=== PATIENT | male | born 1980 | race Caucasian/White ===

== ENCOUNTER 2017-03-09 20:37 | Emergency (ER) | payer BC ==
--- NOTE | 2017-03-09 20:57 | Emergency Department Record ---
History of Present Illness - General Chief complaint: Pain Stated complaint: KNEE PAIN Time Seen by Provider: 03/09/17 20:52 Source: Patient Mode of Arrival: Ambulatory Limitations: No limitations - History of Present Illness Initial comments: 36 yo male presents with medial knee pain on the left. He is unsure of any injury. No history of knee surgery. No redness or swelling.. He is on his feet all day. No other joint pains. MD Complaint: Extremity pain, Joint pain - Related Data Previous Rx's Medication Instructions Recorded Naproxen [Naprosyn] 500 mg PO Q12H #20 tab. 03/09/17 Allergies Allergy/AdvReac Type Severity Reaction Status Date / Time diptheria immunization Allergy ANAPHYLAXIS Uncoded 08/18/16 03:49 Review of Systems Constitutional: Denies: Chills, Fever, Malaise, Weakness Eyes: Denies: Eye discharge, Eye pain ENT: Denies: Congestion, Throat pain Respiratory: Denies: Cough, Dyspnea, Hemoptysis, Stridor, Wheezes Cardiovascular: Denies: Chest pain, Palpitations, Syncope Endocrine: Denies: Fatigue Gastrointestinal: Denies: Abdominal pain, Diarrhea, Vomiting Genitourinary: Denies: Dysuria, Frequency, Hematuria Musculoskeletal: Reports: Arthralgia, Myalgia. Denies: Back pain, Joint swelling, Neck pain Skin: Denies: Bruising, Change in color, Rash Neurological: Denies: Confusion, Headache Psychiatric: Denies: Anxiety Hematological/Lymphatic: Denies: Blood Clots, Easy bleeding, Easy bruising, Swollen glands Past Medical History - SOCIAL HISTORY Smoking Status: Never smoker Drug Use: None - RESPIRATORY Hx Respiratory Disorders: No - CARDIOVASCULAR Hx Cardio Disorders: No - NEURO Hx Neuro Disorders: No - GI Hx GI Disorders: No - Hx Genitourinary Disorders: No - ENDOCRINE Hx Endocrine Disorders: No - MUSCULOSKELETAL Hx Musculoskeletal Disorders: No - PSYCH Hx Psych Problems: No - HEMATOLOGY/ONCOLOGY Hx Hematology/Oncology Disorders: No Physical Exam - General General Appearance: Alert, Oriented x3, Cooperative, No acute distress Limitations: No limitations - Head Head exam: Atraumatic, Normal inspection - Eye Eye exam: Normal appearance, PERRL. negative: Conjunctival injection, Periorbital swelling - ENT ENT exam: Normal exam Ear exam: Normal external inspection Nasal Exam: Normal inspection Mouth exam: Normal external inspection Teeth exam: Normal inspection Throat exam: Normal inspection - Neck Neck exam: Normal inspection - Respiratory Respiratory exam: Normal lung sounds bilaterally. negative: Respiratory distress - Cardiovascular Cardiovascular Exam: Regular rate, Normal rhythm, Normal heart sounds - Rectal Rectal exam: Deferred - exam: Deferred - Extremities Extremities exam: Normal inspection, Full ROM, Normal capillary refill, Tenderness (medial joint line), Other (full ROM). negative: Calf tenderness, Joint swelling, Pedal edema - Back Back exam: Reports: Normal inspection, Full ROM. Denies: Muscle spasm, Rash noted, Tenderness - Neurological Neurological exam: Alert, Normal gait, Oriented X3 - Psychiatric Psychiatric exam: Normal affect, Normal mood. negative: Agitated, Anxious - Skin Skin exam: Dry, Intact, Normal color, Warm Course Vital Signs 03/09/17 20:43 Temperature 98.4 F Pulse Rate [ 108 H Pulse Ox Probe] Respiratory 20 Rate Blood Pressure 126/97 [Left Arm] Pulse Ox 96 - Reevaluation(s) Reevaluation #1: The XR was read as mild degenerative changes. No other acute process 03/09/17 21:21 Disposition Disposition: Discharge Clinical Impression: Osteoarthritis of left knee Disposition: Home, Self-Care Condition: (1) Good Instructions: Osteoarthritis (ED), Knee Sprain (ED) Additional Instructions: Ice every night if sore Follow up with Dr Reich if the pain continues Prescriptions: Naproxen [Naprosyn] 500 mg PO Q12H #20 tab. Forms: Patient Portal Access Time of Disposition: 21:25
== END 2017-03-09 21:36 | disposition home or self-care (01) ==
LOC: ER 20:37
DX: M17.12 Unilateral primary osteoarthritis, left knee (principal)
CPT/HCPCS: 99283

== ENCOUNTER 2017-03-18 18:44 | Emergency (ER) | payer SELFPAY ==
--- NOTE | 2017-03-18 19:01 | Emergency Department Record ---
History of Present Illness - General Chief complaint: Lower Extremity Pain Stated complaint: LEFT KNEE PAIN Time Seen by Provider: 03/18/17 18:55 Source: Patient Mode of Arrival: Ambulatory Limitations: No limitations - History of Present Illness Initial comments: 36 yo male presents with continued medial left knee pain. He is on his feet all day at work and the pain is not going away. No fever or redness. No swelling. He is using a knee brace for support. No history of surgery in that knee. MD Complaint: Joint pain Onset/Timin -: Week(s) Location: Left, Knee History of Same: Yes -: Yes Arthralgia Radiation: None Severity scale (1-10): 8 Quality: Aching Consistency: Constant Improves with: Nothing Worsens with: Nothing Associated Symptoms: Denies other symptoms - Related Data Previous Rx's Medication Instructions Recorded Naproxen [Naprosyn] 500 mg PO Q12H #20 tab. 03/09/17 Methylprednisolone [Medrol Dose 0 mg PO UD #1 tab.ds.pk 03/18/17 Pack] Allergies Allergy/AdvReac Type Severity Reaction Status Date / Time diptheria immunization Allergy ANAPHYLAXIS Uncoded 03/18/17 18:53 Travel Screening - Travel/Exposure Within Last 30 Days Have you traveled within the last 30 days?: No Review of Systems Constitutional: Denies: Chills, Fever, Weakness Eyes: Denies: Eye discharge ENT: Denies: Congestion, Throat pain Respiratory: Denies: Cough Cardiovascular: Denies: Chest pain, Palpitations, Syncope Endocrine: Denies: Fatigue Gastrointestinal: Denies: Abdominal pain, Diarrhea, Nausea, Vomiting Genitourinary: Denies: Dysuria, Frequency, Hematuria Musculoskeletal: Reports: Arthralgia, Myalgia. Denies: Back pain, Joint swelling, Neck pain Skin: Denies: Bruising, Change in color, Rash Neurological: Denies: Headache, Numbness, Weakness Psychiatric: Denies: Anxiety Hematological/Lymphatic: Denies: Blood Clots, Easy bleeding, Easy bruising, Swollen glands Past Medical History - SOCIAL HISTORY Smoking Status: Never smoker Alcohol Use: None Drug Use: None - RESPIRATORY Hx Respiratory Disorders: No - CARDIOVASCULAR Hx Cardio Disorders: No - NEURO Hx Neuro Disorders: No - GI Hx GI Disorders: No - Hx Genitourinary Disorders: No - ENDOCRINE Hx Endocrine Disorders: No - MUSCULOSKELETAL Hx Musculoskeletal Disorders: No - PSYCH Hx Psych Problems: No - HEMATOLOGY/ONCOLOGY Hx Hematology/Oncology Disorders: No Family Medical History Any Significant Family History?: No Physical Exam - General General Appearance: Alert, Oriented x3, Cooperative Limitations: No limitations - Head Head exam: Atraumatic, Normocephalic, Normal inspection - Eye Eye exam: Normal appearance - ENT ENT exam: Normal exam Ear exam: Normal external inspection Nasal Exam: Normal inspection Mouth exam: Normal external inspection - Neck Neck exam: Normal inspection. negative: Tenderness - Respiratory Respiratory exam: Normal lung sounds bilaterally. negative: Respiratory distress - Cardiovascular Cardiovascular Exam: Regular rate, Normal rhythm, Normal heart sounds - Rectal Rectal exam: Deferred - exam: Deferred - Extremities Extremities exam: Normal inspection, Full ROM, Normal capillary refill, Tenderness, Other (calf is soft, no sign of DVT on examination). negative: Calf tenderness, Joint swelling, Pedal edema Image of Full Body: 1 - medial knee tenderness on palpation, no swelling, no effusion, no other swelling - Back Back exam: Reports: Normal inspection, Full ROM. Denies: Muscle spasm, Rash noted, Tenderness - Neurological Neurological exam: Alert, Normal gait, Oriented X3, Reflexes normal - Psychiatric Psychiatric exam: Normal affect, Normal mood - Skin Skin exam: Dry, Intact, Normal color, Warm Course Vital Signs 03/18/17 18:49 Temperature 98.9 F Pulse Rate 128 H Respiratory 20 Rate Blood Pressure 134/102 Pulse Ox 98 - Reevaluation(s) Reevaluation #1: EMR reviewed from prior visit including XR The patient will be referred back to his PCP and [facility] 03/18/17 18:58 Disposition Disposition: Discharge Clinical Impression: Degenerative arthritis of left knee Qualifiers: Osteoarthritis type: unspecified Qualified Code(s): M17.12 - Unilateral primary osteoarthritis, left knee Disposition: Home, Self-Care Condition: (1) Good Instructions: Knee Pain (ED) Additional Instructions: Call Dr Reich for close follow up you are being [facility] Prescriptions: Methylprednisolone [Medrol Dose Pack] 0 mg PO UD #1 tab.ds.pk Referrals: VANDA TONEY [DOCTOR OF OSTEOPATH] - [facility] [Provider Group] Forms: Patient Portal Access Time of Disposition: 19:00
[2017-03-18] MEDS: KETOROLAC 30 MG/ML VIAL IM ONE (19:11)
== END 2017-03-18 19:31 | disposition home or self-care (01) ==
LOC: ER 18:44
DX: M17.12 Unilateral primary osteoarthritis, left knee (principal)
CPT/HCPCS: 96372; 99283; J1885

== ENCOUNTER 2017-04-05 10:54 | Emergency (ER) | payer SELFPAY ==
--- NOTE | 2017-04-05 11:07 | Emergency Department Record ---
History of Present Illness - General Chief complaint: Dental Stated complaint: DENTAL PAIN Time Seen by Provider: 04/05/17 11:04 Source: Patient Mode of Arrival: Ambulatory Limitations: No limitations - History of Present Illness Initial comments: 36 yo male presents to ED with a CC of pain to the left upper previously fractured tooth that began yesterday. Patient denies recent injury or trauma to the tooth, denies fevers, chills, or gingival swelling to the area. Patient reports numerous previous dental caries, and has a follow-up appointment arranged with his dentist for the . complaint: Tooth pain Onset/Timin -: Days(s) Severity: Moderate Severity scale (1-10): 9 Quality: Aching Consistency: Constant Improves with: None Worsens with: None Context- Dental: History of dental caries, Poor dental care - Related Data Previous Rx's Medication Instructions Recorded Naproxen [Naprosyn] 500 mg PO Q12H #30 tab. 04/05/17 Penicillin V Potassium 500 mg PO Q6H #28 tab 04/05/17 Allergies Allergy/AdvReac Type Severity Reaction Status Date / Time diptheria immunization Allergy ANAPHYLAXIS Uncoded 04/05/17 11:00 Travel Screening - Travel/Exposure Within Last 30 Days Have you traveled within the last 30 days?: No - Travel/Exposure Within Last Year Have you traveled outside the [place] in the last year?: No - Additonal Travel Details Have you been exposed to anyone with a communicable illness?: No - Travel Symptoms Symptom Screening: None Review of Systems Constitutional: Denies: Chills, Fever, Malaise, Night sweats Eyes: Denies: Eye discharge, Eye pain ENT: Reports: Dental pain. Denies: Congestion, Ear pain Respiratory: Denies: Cough, Dyspnea Cardiovascular: Denies: Chest pain, Dyspnea on exertion Endocrine: Denies: Fatigue, Heat or cold intolerance Gastrointestinal: Denies: Abdominal pain, Nausea, Vomiting Genitourinary: Denies: Incontinence, Retention Musculoskeletal: Denies: Arthralgia, Back pain Skin: Denies: Bruising, Change in color Neurological: Denies: Abnormal gait, Confusion, Headache, Seizure Psychiatric: Denies: Anxiety Hematological/Lymphatic: Denies: Anemia, Blood Clots Past Medical History - SOCIAL HISTORY Smoking Status: Never smoker Alcohol Use: None Drug Use: None - RESPIRATORY Hx Respiratory Disorders: No - CARDIOVASCULAR Hx Cardio Disorders: No - NEURO Hx Neuro Disorders: No - GI Hx GI Disorders: No - Hx Genitourinary Disorders: No - ENDOCRINE Hx Endocrine Disorders: No - MUSCULOSKELETAL Hx Musculoskeletal Disorders: No - PSYCH Hx Psych Problems: No - HEMATOLOGY/ONCOLOGY Hx Hematology/Oncology Disorders: No Family Medical History Any Significant Family History?: Yes Physical Exam - General General Appearance: Alert, Oriented x3, Cooperative, Mild distress Limitations: No limitations - Head Head exam: Atraumatic, Normocephalic, Normal inspection Head exam detail: negative: Abrasion, Contusion, Pompa's sign, General tenderness, Hematoma, Laceration - Eye Eye exam: Normal appearance. negative: Conjunctival injection, Periorbital swelling, Periorbital tenderness, Scleral icterus - ENT Ear exam: negative: Auricular hematoma, Auricular trauma Nasal Exam: negative: Active bleeding, Discharge, Dried blood, Foreign body Mouth exam: negative: Drooling, Laceration, Muffled voice, Tongue elevation Teeth exam: Dental caries, Dental tenderness # Image of Mouth/Teeth: 1 - Broken tooth previously, diffuse dental caries, no gingival swelling present - Neck Neck exam: Normal inspection. negative: Meningismus, Tenderness - Respiratory Respiratory exam: Normal lung sounds bilaterally. negative: Rales, Respiratory distress, Rhonchi, Stridor - Cardiovascular Cardiovascular Exam: Regular rate, Normal rhythm, Normal heart sounds - GI/Abdominal GI/Abdominal exam: Soft. negative: Rebound, Rigid, Tenderness - Rectal Rectal exam: Deferred - exam: Deferred - Extremities Extremities exam: Normal inspection. negative: Calf tenderness, Pedal edema, Tenderness - Back Back exam: Denies: CVA tenderness (R), CVA tenderness (L) - Neurological Neurological exam: Alert, Normal gait, Oriented X3 - Psychiatric Psychiatric exam: Normal affect, Normal mood - Skin Skin exam: Normal color. negative: Abrasion Type of lesion: negative: abrasion Course Vital Signs 04/05/17 10:55 Temperature 98.3 F Pulse Rate 77 Respiratory 16 Rate Blood Pressure 118/76 Pulse Ox 97 - Reevaluation(s) Reevaluation #1: 04/05/17 11:11 Patient was offered dental block for his symptoms, declined. Will treat with Penicillin VK as well as Naprosyn for his pain symptoms with instructions to follow-up with his dentist as scheduled. Patient appears stable for discharge at this time. Disposition Disposition: Discharge Clinical Impression: Dental caries Disposition: Home, Self-Care Condition: (2) Stable Instructions: Dental Abscess (ED) Additional Instructions: Return to ED if your symptoms worsen or if you have any concerns. Pen VK and Naprosyn as directed. Follow-up with your dentist in 3-5 days as directed. Prescriptions: Naproxen [Naprosyn] 500 mg PO Q12H #30 tab. Penicillin V Potassium 500 mg PO Q6H #28 tab Forms: Patient Portal Access Time of Disposition: 11:07
== END 2017-04-05 11:30 | disposition home or self-care (01) ==
LOC: ER 10:54
DX: K02.9 Dental caries, unspecified (principal)
CPT/HCPCS: 99282

== ENCOUNTER 2017-04-07 19:02 | Emergency (ER) | payer SELFPAY ==
--- NOTE | 2017-04-07 19:19 | Emergency Department Record ---
History of Present Illness - General Chief complaint: Toothache Stated complaint: DENTAL PAIN Source: Patient Mode of Arrival: Ambulatory Limitations: No limitations - History of Present Illness Initial comments: 36 yo male presents with 3-4 days of frontal upper tooth pain. He has has infection there before. No fevers. He does have some swelling. No pus. He has been on Penicillin for 2 days. No improvement. He has not seen a dentist. No facial swelling. MD complaint: Tooth pain -: Days(s) Location: Tooth # Severity: Moderate Quality: Aching Consistency: Constant Improves with: None Worsens with: Eating Context-Epistaxis: History of similar Context- Dental: History of dental caries, Poor dental care Associated Symptoms: Gum swelling - Related Data Previous Rx's Medication Instructions Recorded Naproxen [Naprosyn] 500 mg PO Q12H #30 tab. 04/05/17 Penicillin V Potassium 500 mg PO Q6H #28 tab 04/05/17 Clindamycin HCl [Cleocin HCl] 300 mg PO Q6H #28 capsule 04/07/17 Hydrocodone/Acetaminophen [Paterson 1 each PO Q6H #12 tablet 04/07/17 5-325 Tablet] Allergies Allergy/AdvReac Type Severity Reaction Status Date / Time diptheria immunization Allergy ANAPHYLAXIS Uncoded 04/05/17 11:00 Review of Systems Constitutional: Denies: Chills, Fever, Weakness Eyes: Denies: Eye discharge, Eye pain, Photophobia, Vision change ENT: Reports: Dental pain. Denies: Congestion, Ear pain, Hearing loss, Throat pain Respiratory: Denies: Cough, Dyspnea, Wheezes Cardiovascular: Denies: Chest pain, Palpitations, Syncope Endocrine: Denies: Fatigue Gastrointestinal: Denies: Abdominal pain, Diarrhea, Nausea, Vomiting Genitourinary: Denies: Hematuria, Urgency Musculoskeletal: Denies: Arthralgia, Back pain, Joint swelling, Myalgia Skin: Denies: Bruising, Change in color, Rash Neurological: Denies: Headache Psychiatric: Denies: Anxiety Hematological/Lymphatic: Denies: Blood Clots, Easy bleeding, Easy bruising, Swollen glands Past Medical History - SOCIAL HISTORY Smoking Status: Never smoker Drug Use: None - RESPIRATORY Hx Respiratory Disorders: No - CARDIOVASCULAR Hx Cardio Disorders: No - NEURO Hx Neuro Disorders: No - GI Hx GI Disorders: No - Hx Genitourinary Disorders: No - ENDOCRINE Hx Endocrine Disorders: No - MUSCULOSKELETAL Hx Musculoskeletal Disorders: No - PSYCH Hx Psych Problems: No - HEMATOLOGY/ONCOLOGY Hx Hematology/Oncology Disorders: No Physical Exam - General General Appearance: Alert, Oriented x3, Cooperative, No acute distress Limitations: No limitations - Head Head exam: Atraumatic, Normal inspection Head exam detail: Other (No facial swelling) - Eye Eye exam: Normal appearance, PERRL. negative: Conjunctival injection, Periorbital swelling, Periorbital tenderness, Scleral icterus - ENT ENT exam: Mucous membranes moist. negative: Normal exam, Normal orophraynx Ear exam: Normal external inspection. negative: External canal tenderness Nasal Exam: Normal inspection. negative: Discharge, Sinus tenderness Mouth exam: Normal external inspection, Tongue normal Teeth exam: Dental caries, Dental tenderness # (8), Gingival enlargement (very minimal #8). negative: Normal inspection, Fractured tooth # Throat exam: Normal inspection. negative: Tonsillar erythema, Tonsillomegaly, Tonsillar exudate, R peritonsillar mass, L peritonsillar mass - Neck Neck exam: Normal inspection, Full ROM. negative: Lymphadenopathy, Tenderness - Respiratory Respiratory exam: Normal lung sounds bilaterally. negative: Respiratory distress - Cardiovascular Cardiovascular Exam: Regular rate, Normal rhythm, Normal heart sounds - Rectal Rectal exam: Deferred - exam: Deferred - Extremities Extremities exam: Normal inspection - Neurological Neurological exam: Alert, CN II-XII intact, Oriented X3. negative: Altered - Psychiatric Psychiatric exam: Normal affect, Normal mood - Skin Skin exam: Dry, Intact, Normal color, Warm Course Vital Signs 04/07/17 19:10 Temperature 97.9 F Pulse Rate [ 111 H Pulse Ox Probe] Respiratory 18 Rate Blood Pressure 143/96 [Left Arm] Pulse Ox 100 - Reevaluation(s) Reevaluation #1: 04/07/17 19:17The patient has mild local swelling at #8, no palpable abscess Disposition Disposition: Discharge Clinical Impression: Dental caries Disposition: Home, Self-Care Condition: (1) Good Instructions: Dental Abscess (ED), Toothache (ED) Additional Instructions: Call the number provided for a dentist tomorrow Return if worse, fever, swelling or concerns. Prescriptions: Clindamycin HCl [Cleocin HCl] 300 mg PO Q6H #28 capsule Hydrocodone/Acetaminophen [Paterson 5-325 Tablet] 1 each PO Q6H #12 tablet Forms: Patient Portal Access Time of Disposition: 19:18
== END 2017-04-07 19:27 | disposition home or self-care (01) ==
LOC: ER 19:02
DX: K02.9 Dental caries, unspecified (principal)
CPT/HCPCS: 99282

== ENCOUNTER 2017-08-17 14:54 | Emergency (ER) | payer SELFPAY ==
--- NOTE | 2017-08-17 15:20 | Emergency Department Record ---
History of Present Illness - General Stated complaint: LT ANKLE SWELLING/PAIN Time Seen by Provider: 08/17/17 15:14 Source: Patient Mode of Arrival: Ambulatory Limitations: No limitations - History of Present Illness Initial comments: 36 yo male presents with 3 weeks of left ankle pain. He had a mild twist initially. The ankles has continued to be painful and swell. He is ambulatory. He had mild bruising that is gone. No calf pain or calf swelling. He has some pain at the Achilles but not changes in function. MD Complaint: Extremity pain, Joint pain, Joint swelling -: Week(s) (3) Location: Left, Ankle -: Yes Arthralgia, Yes Myalgia Radiation: Distal Quality: Aching Consistency: Constant Improves with: Elevation, Immobilization Worsens with: Palpation, Walking, Weight bearing Associated Symptoms: Denies other symptoms - Related Data Home Medications Medication Instructions Recorded Confirmed Last Taken No Home Med [NO HOME MEDS] 08/17/17 08/17/17 Unknown Allergies Allergy/AdvReac Type Severity Reaction Status Date / Time diptheria immunization Allergy ANAPHYLAXIS Uncoded 08/17/17 15:21 Review of Systems Constitutional: Denies: Chills, Fever, Malaise, Weakness Eyes: Denies: Eye discharge ENT: Denies: Congestion, Throat pain Respiratory: Denies: Cough Cardiovascular: Denies: Chest pain, Palpitations, Syncope Endocrine: Denies: Fatigue Gastrointestinal: Denies: Abdominal pain, Diarrhea, Nausea, Vomiting Genitourinary: Denies: Dysuria, Frequency, Hematuria Musculoskeletal: Reports: As per HPI, Arthralgia. Denies: Back pain, Neck pain Skin: Denies: Bruising, Change in color, Rash Neurological: Denies: Headache, Numbness, Weakness Psychiatric: Denies: Anxiety Hematological/Lymphatic: Denies: Blood Clots, Easy bleeding, Easy bruising, Swollen glands Past Medical History - SOCIAL HISTORY Smoking Status: Never smoker Drug Use: None - RESPIRATORY Hx Respiratory Disorders: No - CARDIOVASCULAR Hx Cardio Disorders: No - NEURO Hx Neuro Disorders: No - GI Hx GI Disorders: No - Hx Genitourinary Disorders: No - ENDOCRINE Hx Endocrine Disorders: No - MUSCULOSKELETAL Hx Musculoskeletal Disorders: No - PSYCH Hx Psych Problems: No - HEMATOLOGY/ONCOLOGY Hx Hematology/Oncology Disorders: No Family Medical History Family Hx Comment (NOT TO BE USED IN PLACE OF ITEMS BELOW): denies Physical Exam - General General Appearance: Alert, Oriented x3, Cooperative, No acute distress - Head Head exam: Atraumatic, Normal inspection - Eye Eye exam: Normal appearance. negative: Conjunctival injection, Periorbital swelling - ENT ENT exam: Normal exam Ear exam: Normal external inspection Nasal Exam: Normal inspection Mouth exam: Normal external inspection - Neck Neck exam: Normal inspection - Respiratory Respiratory exam: Normal lung sounds bilaterally. negative: Respiratory distress - Cardiovascular Cardiovascular Exam: Regular rate, Normal rhythm, Normal heart sounds Peripheral Pulses: 2+: Dorsalis Pedis (L) - Rectal Rectal exam: Deferred - exam: Deferred - Extremities Extremities exam: Normal inspection, Full ROM, Joint swelling (mild lateral ankle swelllng), Normal capillary refill, Tenderness. negative: Calf tenderness , Pedal edema Image of Feet: 1 - tender posterior lateral ankle. Intact achilles with normal Carlos test response, the achilles is palpably normal, tender lateral ankle - Back Back exam: Reports: Full ROM - Neurological Neurological exam: Alert, Normal gait, Oriented X3 - Psychiatric Psychiatric exam: Normal affect, Normal mood - Skin Skin exam: Dry, Intact, Normal color, Warm Course - Reevaluation(s) Reevaluation #1: XR ordered of the ankle No warmth, redness or signs of infection or overt inflammation 08/17/17 15:19 Reevaluation #2: The patient is tender over the Achilles tendon that could represent a partial injury/tear He will be placed in a boot and crutches with recommendation to followup with the PCP for a recheck 08/17/17 15:25 08/17/17 15:46 Negative ankle XR Disposition Disposition: Discharge Clinical Impression: Ankle sprain Qualifiers: Encounter type: initial encounter Involved ligament of ankle: unspecified ligament Laterality: left Qualified Code(s): S93.402A - Sprain of unspecified ligament of left ankle, initial encounter Disposition: Home, Self-Care Condition: (1) Good Instructions: Ankle Sprain (ED) Additional Instructions: Use the boot and crutches for support and comfort of the ankle pain that could be your Achilles tendon Do not put full weight on your left Call Dr Reich for close follow up this week to recheck your ankle Time of Disposition: 15:47 Quality - Quality Measures Quality Measures: N/A - Blood Pressure Screening Does Patient Have Any of the Following: No Blood Pressure Classification: Pre-Hypertensive BP Reading Systolic Measurement: 121 Diastolic Measurement: 89 Screening for High Blood Pressure: < Pre-Hypertensive BP, F/U Documented > [ [id number]] Pre-Hypertensive Follow-up Interventions: Referral to alternative/primary care provider.
--- NOTE | 2017-08-19 08:03 | RADIOLOGY REPORT ---
EXAM: LEFT ANKLE HISTORY: PAIN. TECHNIQUE: Three views of the left ankle were obtained. Comparison: None. Encounter: Initial. FINDINGS: Negative for fracture or dislocation. The ankle mortise is intact. The soft tissues are unremarkable. IMPRESSION: NEGATIVE LEFT ANKLE EXAMINATION. JOB NUMBER: [id number] MTDD
== END 2017-08-17 16:14 | disposition home or self-care (01) ==
LOC: ER 14:54
DX: S93.402A Sprain of unspecified ligament of left ankle, initial encounter (principal); X50.1XXA Overexertion from prolonged static or awkward postures, initial encounter
CPT/HCPCS: 99283

== ENCOUNTER 2017-08-20 10:55 | Emergency (ER) | payer SELFPAY ==
--- NOTE | 2017-08-20 11:28 | Emergency Department Record ---
History of Present Illness - General Chief Complaint: Recheck - Other Stated Complaint: NEEDS A RETURN TO WORK NOTE Time Seen by Provider: 08/20/17 11:09 Source: Patient Mode of arrival: Ambulatory Limitations: No limitations - History of Present Illness Initial Comments: The patient is here for a recheck of his L ankle. He originally injured it 2-3 weeks ago and it has been painful since. He is able to walk with the boot on with no difficulty but is still having pain in the ankle. MD Complaint: Wound re-check Onset/Timin -: Week(s) Returns Today for: Needs work/school note Symptoms Since Prior Visit: No new symptoms Associated Symptoms: None Treatments Prior to Arrival: Splint(s) - Related Data Allergies Allergy/AdvReac Type Severity Reaction Status Date / Time diptheria immunization Allergy ANAPHYLAXIS Uncoded 08/17/17 15:21 Travel Screening - Travel/Exposure Within Last 30 Days Have you traveled within the last 30 days?: No - Travel/Exposure Within Last Year Have you traveled outside the [place] in the last year?: No - Additonal Travel Details Have you been exposed to anyone with a communicable illness?: No - Travel Symptoms Symptom Screening: None Review of Systems Constitutional: Denies: Chills, Fever Past Medical History - SOCIAL HISTORY Smoking Status: Never smoker Alcohol Use: None Drug Use: None - RESPIRATORY Hx Respiratory Disorders: No - CARDIOVASCULAR Hx Cardio Disorders: No - NEURO Hx Neuro Disorders: No - GI Hx GI Disorders: No - Hx Genitourinary Disorders: No - ENDOCRINE Hx Endocrine Disorders: No - MUSCULOSKELETAL Hx Musculoskeletal Disorders: No - PSYCH Hx Psych Problems: No - HEMATOLOGY/ONCOLOGY Hx Hematology/Oncology Disorders: No Family Medical History Any Significant Family History?: No Family Hx Comment (NOT TO BE USED IN PLACE OF ITEMS BELOW): denies Physical Exam - General General Appearance: Alert, Cooperative, No acute distress - Head Head exam: Atraumatic, Normocephalic, Normal inspection - Eye Eye exam: Normal appearance, PERRL - Extremities Extremities exam: Full ROM, Joint swelling (mild.), Normal capillary refill, Tenderness (There is diffuse lateral and medial joint tenderness with mild achilles tenderness.), Other (The achilles tendon is intact but mildly tender.) . negative: Normal inspection (There is mild edema to the L ankle diffusely.), Calf tenderness, Pedal edema Course Vital Signs 08/20/17 11:03 Temperature 98.4 F Pulse Rate [ 91 H Pulse Ox Probe] Respiratory 18 Rate Blood Pressure 137/83 [Left Arm] Pulse Ox 98 - Reevaluation(s) Reevaluation #1: I did explain to the patient that due to the fact he is still having pain and swelling he will need to be off for a few more days. He is to see his PCP next week for recheck. 08/20/17 11:31 Disposition Disposition: Discharge Clinical Impression: Ankle sprain Qualifiers: Encounter type: sequela Involved ligament of ankle: other ligament Laterality: left Qualified Code(s): S93.492S - Sprain of other ligament of left ankle, sequela Disposition: Home, Self-Care Condition: (1) Good Instructions: Ankle Strain (ED) Additional Instructions: Please continue your pain medicines and use the walking boot for 5 more days. Please see your PCP early next week for recheck. Forms: Patient Portal Access Time of Disposition: 11:28 Quality - Quality Measures Quality Measures: N/A - Blood Pressure Screening View Details: Yes Does Patient Have Any of the Following: No Blood Pressure Classification: Hypertensive Reading Systolic Measurement: 142 Diastolic Measurement: 91 Screening for High Blood Pressure: < Normal BP, F/U Not Required > [G8783]
== END 2017-08-20 11:42 | disposition home or self-care (01) ==
LOC: ER 10:55
DX: S93.492A Sprain of other ligament of left ankle, initial encounter (principal); X50.1XXA Overexertion from prolonged static or awkward postures, initial encounter
CPT/HCPCS: 99282

== ENCOUNTER 2018-01-19 19:28 | Emergency (ER) | payer MEDICAID ==
[2018-01-19] MEDS ORDERED: ONDANSETRON 4 MG ODT TABLET SL ONE (19:41)
--- NOTE | 2018-01-19 20:10 | Emergency Department Record ---
History of Present Illness - General Chief complaint: Vomiting Stated complaint: VOMITING,HEADACHE,BODY ACHES, Time Seen by Provider: 01/19/18 20:04 Source: Patient Mode of Arrival: Ambulatory Limitations: No limitations - History of Present Illness Initial comments: 37 yo male presents to ED for evaluation of cough symptoms and vomiting intermittently for 1 week. Patient denies fevers, chills, abdominal pain, sore throat, or ear pain symptoms on examination. Patient also reports mild headache "from coughing". Patient denies health problems at his baseline, denies any recent ill contacts. MD complaint: Nausea, Vomiting Onset/Timin -: Days(s) Description of Vomiting: Bilious, Food contents Associated Abdominal Pain: No Consistency: Intermittent Improves with: Rest Worsens with: Movement Associated Symptoms: Nausea/vomiting - Related Data Previous Rx's Medication Instructions Recorded Benzonatate [Tessalon] 2 cap PO Q8H PRN #30 cap 01/19/18 Ondansetron [Zofran Odt] 4 mg PO Q6H PRN #20 tab.rapdis 01/19/18 Allergies Allergy/AdvReac Type Severity Reaction Status Date / Time diptheria immunization Allergy ANAPHYLAXIS Uncoded 08/17/17 15:21 Travel Screening - Travel/Exposure Within Last 30 Days Have you traveled within the last 30 days?: No - Travel Symptoms Symptom Screening: Vomiting Review of Systems Constitutional: Denies: Chills, Fever, Malaise, Night sweats Eyes: Denies: Eye discharge, Eye pain ENT: Denies: Congestion, Ear pain, Epistaxis Respiratory: Reports: Cough. Denies: Dyspnea Cardiovascular: Denies: Chest pain, Dyspnea on exertion Endocrine: Denies: Fatigue, Heat or cold intolerance Gastrointestinal: Reports: Nausea, Vomiting. Denies: Abdominal pain Genitourinary: Denies: Incontinence, Retention Musculoskeletal: Denies: Arthralgia, Back pain, Gout, Joint swelling Skin: Denies: Bruising, Change in color Neurological: Denies: Abnormal gait, Confusion, Headache, Seizure Psychiatric: Denies: Anxiety Hematological/Lymphatic: Denies: Anemia, Blood Clots Past Medical History - SOCIAL HISTORY Smoking Status: Never smoker Alcohol Use: Rare Drug Use: None - RESPIRATORY Hx Respiratory Disorders: No - CARDIOVASCULAR Hx Cardio Disorders: No - NEURO Hx Neuro Disorders: No - GI Hx GI Disorders: No - Hx Genitourinary Disorders: No - ENDOCRINE Hx Endocrine Disorders: No - MUSCULOSKELETAL Hx Musculoskeletal Disorders: No - PSYCH Hx Psych Problems: No - HEMATOLOGY/ONCOLOGY Hx Hematology/Oncology Disorders: No Family Medical History Any Significant Family History?: No Family Hx Comment (NOT TO BE USED IN PLACE OF ITEMS BELOW): denies Physical Exam - General General Appearance: Alert, Oriented x3, Cooperative Limitations: No limitations - Head Head exam: Atraumatic, Normocephalic, Normal inspection Head exam detail: negative: Abrasion, Contusion, Pompa's sign, General tenderness, Hematoma, Laceration - Eye Eye exam: Normal appearance. negative: Conjunctival injection, Periorbital swelling, Periorbital tenderness, Scleral icterus - ENT Ear exam: negative: Auricular hematoma, Auricular trauma Nasal Exam: negative: Active bleeding, Discharge, Dried blood, Foreign body Mouth exam: negative: Drooling, Laceration, Muffled voice, Tongue elevation - Neck Neck exam: Normal inspection. negative: Meningismus, Tenderness - Respiratory Respiratory exam: Normal lung sounds bilaterally. negative: Rales, Respiratory distress, Rhonchi, Stridor - Cardiovascular Cardiovascular Exam: Regular rate, Normal rhythm, Normal heart sounds - GI/Abdominal GI/Abdominal exam: Soft, Other (Abdominal examination is 100% nontender on exam. ). negative: Rebound, Rigid, Tenderness - Rectal Rectal exam: Deferred - exam: Deferred - Extremities Extremities exam: Normal inspection. negative: Calf tenderness, Pedal edema, Tenderness - Back Back exam: Denies: CVA tenderness (R), CVA tenderness (L) - Neurological Neurological exam: Alert, Normal gait, Oriented X3 - Psychiatric Psychiatric exam: Normal affect, Normal mood - Skin Skin exam: Normal color. negative: Abrasion Type of lesion: negative: abrasion Course Vital Signs 01/19/18 19:34 Temperature 98.3 F Pulse Rate 111 H Respiratory 20 Rate Blood Pressure 128/88 Pulse Ox 97 - Reevaluation(s) Reevaluation #1: 01/19/18 20:10 Patient was seen and examined, denies abdominal pain, fevers, chills on examination and refuses IV placement of laboratory studies. ODT zofran was given, will obtain CXR and re-evaluate. Reevaluation #2: 01/19/18 20:19 CXR: No acute process Patient was updated on all results, will prescribe Zofran as needed for vomiting symptoms as well as Tessalon for his cough symptoms with instructions to follow-up with his PCP in 3-5 days as directed. Patient agrees with the plan of care as discussed. Disposition Disposition: Discharge Clinical Impression: URI (upper respiratory infection) Qualifiers: URI type: unspecified URI Qualified Code(s): J06.9 - Acute upper respiratory infection, unspecified Nausea & vomiting Qualifiers: Vomiting type: unspecified Vomiting Intractability: non-intractable Qualified Code(s): R11.2 - Nausea with vomiting, unspecified Disposition: Home, Self-Care Condition: (2) Stable Instructions: Acute Nausea and Vomiting (ED) Additional Instructions: Return to ED if your symptoms worsen or if you have any concerns. Zofran as directed. Follow-up with your family doctor in 3-5 days as directed. Prescriptions: Benzonatate [Tessalon] 2 cap PO Q8H PRN #30 cap PRN Reason: Cough Ondansetron [Zofran Odt] 4 mg PO Q6H PRN #20 tab.rapdis PRN Reason: Nausea/Vomiting Forms: Patient Portal Access Time of Disposition: 20:20 Quality - Quality Measures Quality Measures: N/A - Blood Pressure Screening Does Patient Have Any of the Following: No Blood Pressure Classification: Pre-Hypertensive BP Reading Systolic Measurement: 128 Diastolic Measurement: 88 Screening for High Blood Pressure: < Pre-Hypertensive BP, F/U Documented > [ G8950] Pre-Hypertensive Follow-up Interventions: Referral to alternative/primary care provider.
--- NOTE | 2018-01-20 14:38 | RADIOLOGY REPORT ---
EXAM: CHEST, TWO VIEWS HISTORY: CHEST PAIN. TECHNIQUE: Frontal and lateral views of the chest were obtained. Comparison: Prior chest from 12/25/15. FINDINGS: The heart size is normal. The lungs are clear. No pneumothorax. IMPRESSION: NEGATIVE CHEST EXAMINATION. JOB NUMBER: [id number] MTDD
== END 2018-01-19 20:35 | disposition home or self-care (01) ==
LOC: ER 19:28
DX: J06.9 Acute upper respiratory infection, unspecified (principal); R11.2 Nausea with vomiting, unspecified; R07.9 Chest pain, unspecified
CPT/HCPCS: 71046; 99283

== ENCOUNTER 2018-06-02 07:51 | Emergency (ER) | payer SELFPAY ==
--- NOTE | 2018-06-02 08:06 | Emergency Department Record ---
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 Pain is located on the anterior knee area below the patella and he is able to extend his leg nicely. Patient states he had previous problem with a popping sensation about two years ago and a scope was recommended. He didn't get it done. Yesterday he finished his shift. Going to work today it was painful and he came to the ED. Onset/Timin Location: Left, Knee History of Same: Yes Severity scale (1-10): 5 Quality: Aching - Related Data Previous Rx's Medication Instructions Recorded Prednisone [Prednisone 10Mg] 10 mg PO ASDIR #30 tab 06/02/18 Allergies Allergy/AdvReac Type Severity Reaction Status Date / Time diptheria immunization Allergy ANAPHYLAXIS Uncoded 06/02/18 07:59 Travel Screening - Travel/Exposure Within Last 30 Days Have you traveled within the last 30 days?: No - Travel/Exposure Within Last Year Have you traveled outside the [place] in the last year?: No - Additonal Travel Details Have you been exposed to anyone with a communicable illness?: No - Travel Symptoms Symptom Screening: None Review of Systems Reviewed: No additional complaints except as noted below Constitutional: Reports: As per HPI. Denies: Chills, Fever, Malaise, Night sweats, Weakness, Weight change Eyes: Reports: As per HPI. Denies: Eye discharge, Eye pain, Photophobia, Vision change ENT: Reports: As per HPI. Denies: Congestion, Dental pain, Ear pain, Epistaxis , Hearing loss, Throat pain Respiratory: Reports: As per HPI. Denies: Cough, Dyspnea, Hemoptysis, Stridor, Wheezes Cardiovascular: Reports: As per HPI. Denies: Arrhythmia, Chest pain, Dyspnea on exertion, Edema, Murmurs, Orthopnea, Palpitations, Paroxysmal nocturnal dyspnea, Rheumatic Fever, Syncope Endocrine: Reports: As per HPI. Denies: Fatigue, Heat or cold intolerance, Polydipsia, Polyuria Gastrointestinal: Reports: As per HPI. Denies: Abdominal pain, Constipation, Diarrhea, Hematemesis, Hematochezia, Melena, Nausea, Vomiting Genitourinary: Reports: As per HPI. Denies: Dysuria, Frequency, Hematuria, Incontinence, Retention, Testicular pain, Testicular mass, Urgency Musculoskeletal: Reports: As per HPI, Arthralgia. Denies: Back pain, Gout, Joint swelling, Myalgia, Neck pain Skin: Reports: As per HPI. Denies: Bruising, Change in color, Change in hair/ nails, Lesions, Pruritus, Rash Neurological: Reports: As per HPI. Denies: Abnormal gait, Confusion, Headache, Numbness, Paresthesias, Seizure, Tingling, Tremors, Vertigo, Weakness Psychiatric: Reports: As per HPI. Denies: Anxiety, Auditory hallucinations, Depression, Homicidal thoughts, Suicidal thoughts, Visual hallucinations Hematological/Lymphatic: Reports: As per HPI. Denies: Anemia, Blood Clots, Easy bleeding, Easy bruising, Swollen glands Past Medical History - SOCIAL HISTORY Smoking Status: Never smoker Alcohol Use: None Drug Use: None - RESPIRATORY Hx Respiratory Disorders: No - CARDIOVASCULAR Hx Cardio Disorders: No - NEURO Hx Neuro Disorders: No - GI Hx GI Disorders: No - Hx Genitourinary Disorders: No - ENDOCRINE Hx Endocrine Disorders: No - MUSCULOSKELETAL Hx Musculoskeletal Disorders: No - PSYCH Hx Psych Problems: No - HEMATOLOGY/ONCOLOGY Hx Hematology/Oncology Disorders: No Family Medical History Any Significant Family History?: Yes Family Hx Comment (NOT TO BE USED IN PLACE OF ITEMS BELOW): denies Physical Exam - General General Appearance: Alert, Oriented x3, Cooperative, No acute distress - Head Head exam: Normal inspection - Eye Eye exam: Normal appearance, PERRL Pupils: Normal accommodation - ENT ENT exam: Normal exam, Mucous membranes moist, Normal external ear exam, Normal orophraynx, TM's normal bilaterally Ear exam: Normal external inspection. negative: External canal tenderness Nasal Exam: Normal inspection. negative: Discharge, Sinus tenderness Mouth exam: Normal external inspection, Tongue normal Teeth exam: Normal inspection. negative: Dental caries Throat exam: Normal inspection. negative: Tonsillar erythema, Tonsillar exudate - Neck Neck exam: Normal inspection, Full ROM. negative: Tenderness - Respiratory Respiratory exam: Normal lung sounds bilaterally. negative: Respiratory distress - Cardiovascular Cardiovascular Exam: Regular rate, Normal rhythm, Normal heart sounds - GI/Abdominal GI/Abdominal exam: Soft, Normal bowel sounds. negative: Tenderness - Rectal Rectal exam: Deferred - exam: Deferred - Extremities Extremities exam: Normal inspection, Full ROM, Normal capillary refill, Tenderness (left knee no collateral pain and the quad tendon is painful and no effussion.) - Back Back exam: Reports: Normal inspection, Full ROM. Denies: Muscle spasm, Rash noted, Tenderness - Neurological Neurological exam: Alert, Normal gait, Oriented X3, Reflexes normal - Psychiatric Psychiatric exam: Normal affect, Normal mood - Skin Skin exam: Dry, Intact, Normal color, Warm Course Vital Signs 06/02/18 07:55 Temperature 98.4 F Pulse Rate 91 H Respiratory 16 Rate Blood Pressure 127/95 Pulse Ox 98 Medical Decision Making - Data Complexity MDM Data: X-Ray Ordered and/or Reviewed (negative for fractures) Disposition Clinical Impression: Tendonitis Left knee sprain Qualifiers: Encounter type: initial encounter Involved ligament of knee: unspecified ligament Qualified Code(s): S83.92XA - Sprain of unspecified site of left knee, initial encounter Disposition: Home, Self-Care Condition: (1) Good Instructions: Knee Sprain (ED), Patellar Tendinitis (ED) Additional Instructions: follow up with Dr. Reich next thursdayJune 07 Prescriptions: Prednisone [Prednisone 10Mg] 10 mg PO ASDIR #30 tab Forms: Patient Portal Access Time of Disposition: 08:37 Quality - Quality Measures Quality Measures: N/A - Blood Pressure Screening Does Patient Have Any of the Following: No Blood Pressure Classification: Hypertensive Reading Systolic Measurement: 127 Diastolic Measurement: 95 Screening for High Blood Pressure: < Pre-Hypertensive BP, F/U Documented > [ G8950] Pre-Hypertensive Follow-up Interventions: Referral to alternative/primary care provider.
--- NOTE | 2018-06-02 14:09 | RADIOLOGY REPORT ---
EXAM: LEFT KNEE, FOUR VIEWS HISTORY: PATIENT FELT KNEE POP ONE DAY AGO. PERIPATELLAR PAIN WITH SWELLING. TECHNIQUE: AP, oblique, lateral and sunrise views of the left knee were obtained. Comparison: None. Encounter: Initial. FINDINGS: There is normal bone mineralization. No acute fracture, dislocation or destructive bone lesion is seen. The articular relations are maintained. There is mild spurring at the quadriceps tendon insertion on the upper pole of the patella. No joint effusion. IMPRESSION: NO ACUTE BONE NOR JOINT ABNORMALITY IDENTIFIED. MINOR ENTHESOPATHIC SPURRING AT THE QUADRICEPS TENDON INSERTION ON THE UPPER POLE OF THE PATELLA. JOB NUMBER: [id number] MTDD
== END 2018-06-02 08:49 | disposition home or self-care (01) ==
LOC: ER 07:51
DX: S83.92XA Sprain of unspecified site of left knee, initial encounter (principal); M76.52 Patellar tendinitis, left knee; X50.0XXA Overexertion from strenuous movement or load, initial encounter; Y99.0 Civilian activity done for income or pay
CPT/HCPCS: 99283

== ENCOUNTER 2018-10-22 14:52 | Emergency (ER) | payer BC ==
--- NOTE | 2018-10-22 15:15 | Emergency Department Record ---
History of Present Illness - General Chief complaint: ENT Stated complaint: SORE THROAT,COUGH Time Seen by Provider: 10/22/18 15:00 Source: Patient Mode of Arrival: Ambulatory Limitations: No limitations - History of Present Illness Initial comments: The patient is here due to having a ST, runny nose, dry cough and MCCURDY for 3 days. He denies any fever, chills, SOB, or sputum. MD complaint: Sore throat Onset/Timin -: Days(s) Severity: Moderate Severity scale (1-10): 4 Quality: Aching Consistency: Constant Improves with: None Associated Symptoms: Cough, Pain with swallowing - Related Data Previous Rx's Medication Instructions Recorded Fluticasone Propionate [Flonase] 2 spray EACH NARES DAILY #1 bottle 10/22/18 Prednisone [Prednisone 20Mg] 40 mg PO DAILY #10 tab 10/22/18 Allergies Allergy/AdvReac Type Severity Reaction Status Date / Time diptheria immunization Allergy ANAPHYLAXIS Uncoded 10/22/18 14:59 Travel Screening - Travel/Exposure Within Last 30 Days Have you traveled within the last 30 days?: No - Travel/Exposure Within Last Year Have you traveled outside the [place] in the last year?: No - Additonal Travel Details Have you been exposed to anyone with a communicable illness?: No - Travel Symptoms Symptom Screening: None Review of Systems Constitutional: Reports: Malaise. Denies: Chills, Fever Eyes: Denies: Eye discharge ENT: Reports: Congestion Respiratory: Reports: Cough. Denies: Dyspnea Past Medical History - SOCIAL HISTORY Smoking Status: Never smoker Alcohol Use: None Drug Use: None - RESPIRATORY Hx Respiratory Disorders: No - CARDIOVASCULAR Hx Cardio Disorders: No - NEURO Hx Neuro Disorders: No - GI Hx GI Disorders: No - Hx Genitourinary Disorders: No - ENDOCRINE Hx Endocrine Disorders: No - MUSCULOSKELETAL Hx Musculoskeletal Disorders: No - PSYCH Hx Psych Problems: No - HEMATOLOGY/ONCOLOGY Hx Hematology/Oncology Disorders: No Family Medical History Any Significant Family History?: Yes Family Hx Comment (NOT TO BE USED IN PLACE OF ITEMS BELOW): denies Physical Exam - General General Appearance: Alert, Oriented x3, Cooperative, No acute distress - Head Head exam: Atraumatic, Normocephalic, Normal inspection - Eye Eye exam: Normal appearance, PERRL, EOMI - ENT ENT exam: negative: TM's normal bilaterally (obstructed by cerumen.) Throat exam: Tonsillar erythema. negative: Normal inspection, Tonsillomegaly, Tonsillar exudate, R peritonsillar mass, L peritonsillar mass - Neck Neck exam: Normal inspection, Full ROM. negative: Lymphadenopathy, Meningismus , Tenderness - Respiratory Respiratory exam: Normal lung sounds bilaterally. negative: Respiratory distress - Cardiovascular Cardiovascular Exam: Regular rate, Normal rhythm, Normal heart sounds - GI/Abdominal GI/Abdominal exam: Soft, Normal bowel sounds. negative: Tenderness - Extremities Extremities exam: Normal inspection, Full ROM, Normal capillary refill. negative: Tenderness - Neurological Neurological exam: Alert. negative: Motor sensory deficit Course Vital Signs 10/22/18 14:54 Temperature 98.1 F Pulse Rate 101 H Respiratory 18 Rate Blood Pressure 143/85 Pulse Ox 97 - Reevaluation(s) Reevaluation #1: I did explain to the patient he has a viral URI and will need to see his PCP next week if not better. 10/22/18 15:12 Disposition Disposition: Discharge Clinical Impression: URI, acute Disposition: Home, Self-Care Condition: (2) Stable Instructions: Upper Respiratory Infection (ED) Additional Instructions: Please take Tylenol or Motrin for body aches and take the Flonase and Prednisone. Please take Zyrtec-D which is OTC. Please see your family doctor for recheck next week if not better and return to the ER for any worsening symptoms. Prescriptions: Fluticasone Propionate [Flonase] 2 spray EACH NARES DAILY #1 bottle Prednisone [Prednisone 20Mg] 40 mg PO DAILY #10 tab Forms: Patient Portal Access Time of Disposition: 15:15 Quality - Quality Measures Quality Measures: N/A - Blood Pressure Screening View Details: Yes Does Patient Have Any of the Following: No Blood Pressure Classification: Pre-Hypertensive BP Reading Systolic Measurement: 143 Diastolic Measurement: 85 Screening for High Blood Pressure: < Pre-Hypertensive BP, F/U Documented > [ G8950] Pre-Hypertensive Follow-up Interventions: Referral to alternative/primary care provider.
== END 2018-10-22 15:21 | disposition home or self-care (01) ==
LOC: ER 14:52
DX: J06.9 Acute upper respiratory infection, unspecified (principal); J02.9 Acute pharyngitis, unspecified; R51 Headache; F17.220 Nicotine dependence, chewing tobacco, uncomplicated
CPT/HCPCS: 99282

== ENCOUNTER 2019-01-07 13:55 | Emergency (ER) | payer SELFPAY ==
--- NOTE | 2019-01-07 15:23 | Emergency Department Record ---
History of Present Illness - General Chief complaint: Extremity Problem Stated complaint: LT ARM PAIN/WC Time Seen by Provider: 01/07/19 14:03 Source: Patient Mode of Arrival: Ambulatory Limitations: No limitations - History of Present Illness Initial comments: pt fell on l elbow and shoulder a week ago and it is still hurting to use it. he slipped on the ice Complaint: Extremity pain, Joint pain Onset/Timin -: Week(s) Location: Left, Shoulder History of Same: No Radiation: Distal Severity scale (1-10): 3 Consistency: Constant, Intermittent Improves with: Immobilization Worsens with: Exertion Associated Symptoms: Denies other symptoms - Related Data Previous Rx's Medication Instructions Recorded Ibuprofen [Motrin 600Mg] 600 mg PO Q6H #20 tablet 01/07/19 Allergies Allergy/AdvReac Type Severity Reaction Status Date / Time diptheria immunization Allergy ANAPHYLAXIS Uncoded 10/22/18 14:59 Travel Screening - Travel/Exposure Within Last 30 Days Have you traveled within the last 30 days?: No Review of Systems Reviewed: No additional complaints except as noted below Constitutional: Reports: As per HPI. Denies: Chills, Fever, Malaise, Night sweats, Weakness, Weight change Eyes: Reports: As per HPI. Denies: Eye discharge, Eye pain, Photophobia, Vision change ENT: Reports: As per HPI. Denies: Congestion, Dental pain, Ear pain, Epistaxis , Hearing loss, Throat pain Respiratory: Reports: As per HPI. Denies: Cough, Dyspnea, Hemoptysis, Stridor, Wheezes Cardiovascular: Reports: As per HPI. Denies: Arrhythmia, Chest pain, Dyspnea on exertion, Edema, Murmurs, Orthopnea, Palpitations, Paroxysmal nocturnal dyspnea, Rheumatic Fever, Syncope Endocrine: Reports: As per HPI. Denies: Fatigue, Heat or cold intolerance, Polydipsia, Polyuria Gastrointestinal: Reports: As per HPI. Denies: Abdominal pain, Constipation, Diarrhea, Hematemesis, Hematochezia, Melena, Nausea, Vomiting Genitourinary: Reports: As per HPI. Denies: Dysuria, Frequency, Hematuria, Incontinence, Retention, Testicular pain, Testicular mass, Urgency Musculoskeletal: Reports: As per HPI. Denies: Arthralgia, Back pain, Gout, Joint swelling, Myalgia, Neck pain Skin: Reports: As per HPI. Denies: Bruising, Change in color, Change in hair/ nails, Lesions, Pruritus, Rash Neurological: Reports: As per HPI. Denies: Abnormal gait, Confusion, Headache, Numbness, Paresthesias, Seizure, Tingling, Tremors, Vertigo, Weakness Psychiatric: Reports: As per HPI. Denies: Anxiety, Auditory hallucinations, Depression, Homicidal thoughts, Suicidal thoughts, Visual hallucinations Hematological/Lymphatic: Reports: As per HPI. Denies: Anemia, Blood Clots, Easy bleeding, Easy bruising, Swollen glands Past Medical History - SOCIAL HISTORY Smoking Status: Never smoker - RESPIRATORY Hx Respiratory Disorders: No - CARDIOVASCULAR Hx Cardio Disorders: No - NEURO Hx Neuro Disorders: No - GI Hx GI Disorders: No - Hx Genitourinary Disorders: No - ENDOCRINE Hx Endocrine Disorders: No - MUSCULOSKELETAL Hx Musculoskeletal Disorders: No - PSYCH Hx Psych Problems: No - HEMATOLOGY/ONCOLOGY Hx Hematology/Oncology Disorders: No Family Medical History Any Significant Family History?: No Family Hx Comment (NOT TO BE USED IN PLACE OF ITEMS BELOW): denies Physical Exam - General General Appearance: Alert, Oriented x3, Cooperative, Mild distress - Head Head exam: Normal inspection - Eye Eye exam: Normal appearance, PERRL, EOMI Pupils: Normal accommodation - ENT ENT exam: Normal exam, Mucous membranes moist, Normal external ear exam, Normal orophraynx Ear exam: Normal external inspection. negative: External canal tenderness Nasal Exam: Normal inspection. negative: Discharge, Sinus tenderness Mouth exam: Normal external inspection, Tongue normal Teeth exam: Normal inspection. negative: Dental caries Throat exam: Normal inspection. negative: Tonsillar erythema, Tonsillar exudate - Neck Neck exam: Normal inspection, Full ROM. negative: Tenderness - Respiratory Respiratory exam: Normal lung sounds bilaterally. negative: Respiratory distress - Cardiovascular Cardiovascular Exam: Normal rhythm, Normal heart sounds, Tachycardia - GI/Abdominal GI/Abdominal exam: Soft, Normal bowel sounds. negative: Tenderness - Rectal Rectal exam: Deferred - exam: Deferred - Extremities Extremities exam: Normal capillary refill, Tenderness. negative: Normal inspection, Full ROM Image of Full Body: 1 - tender 2 - tender - Back Back exam: Reports: Normal inspection, Full ROM. Denies: Muscle spasm, Rash noted, Tenderness - Neurological Neurological exam: Alert, CN II-XII intact, Normal gait, Oriented X3 - Psychiatric Psychiatric exam: Normal affect, Normal mood - Skin Skin exam: Dry, Intact, Normal color, Warm Course Vital Signs 01/07/19 15:14 Temperature 98.0 F Pulse Rate [ 124 H Pulse Ox Probe] Respiratory 20 Rate Blood Pressure 143/96 [Right Arm] Pulse Ox 98 Disposition Disposition: Discharge Clinical Impression: Rotator cuff (capsule) sprain Qualifiers: Encounter type: initial encounter Laterality: left Qualified Code(s): S43.422A - Sprain of left rotator cuff capsule, initial encounter Sprain of elbow, left Qualifiers: Encounter type: initial encounter Qualified Code(s): S53.402A - Unspecified sprain of left elbow, initial encounter Disposition: Home, Self-Care Condition: (1) Good Instructions: Rotator Cuff Injury (ED), Elbow Sprain (ED) Additional Instructions: follow up with orthopedic surgeon. return sooner if worse. motrin for pain Prescriptions: Ibuprofen [Motrin 600Mg] 600 mg PO Q6H #20 tablet Referrals: VANDA TONEY [DOCTOR OF OSTEOPATH] - [facility] [Provider Group] Forms: Patient Portal Access, Return to Work/School Quality - Quality Measures Quality Measures: N/A - Blood Pressure Screening Does Patient Have Any of the Following: No Blood Pressure Classification: Hypertensive Reading Systolic Measurement: 143 Diastolic Measurement: 96 Screening for High Blood Pressure: < First Hypertensive BP, F/U Documented > [ G8950] First Hypertensive Follow-up Interventions: Follow-up with rescreen GT 1 day and LT 4 weeks.
--- NOTE | 2019-01-11 06:23 | RADIOLOGY REPORT ---
DATE: 01/07/2019 at 1435 EXAM: LEFT ELBOW THREE VIEWS. HISTORY: Lateral left elbow pain four weeks post fall. TECHNIQUE: Three views of the left elbow. COMPARISON: None. ENCOUNTER: Initial. FINDINGS: There is normal bone mineralization. No acute fracture, dislocation , or destructive bone lesion is seen. The articular relations are maintained. No anterior nor posterior fat pad sign. No suspicious focal soft tissue abnormality. IMPRESSION: NO EVIDENCE OF AN ACUTE BONE NOR JOINT ABNORMALITY. JOB NUMBER: [id number] [facility]
--- NOTE | 2019-01-11 06:26 | RADIOLOGY REPORT ---
EXAM: LEFT SHOULDER, THREE VIEWS HISTORY: DIFFUSE LEFT SHOULDER PAIN FOUR WEEKS POST FALL. TECHNIQUE: Internal and external humerus rotation AP views of the left shoulder were obtained as well as a scapular Y-view. Comparison: Two view chest radiographic examination dated 01/19/18. FINDINGS: There is normal bone mineralization. No fracture, dislocation, or destructive bone lesion is seen. The articular relations are maintained. No focal soft tissue abnormality. IMPRESSION: NEGATIVE LEFT SHOULDER EXAMINATION. J[facility]BER: [id number] [facility]
== END 2019-01-07 15:35 | disposition home or self-care (01) ==
LOC: ER 13:55
DX: S43.422A Sprain of left rotator cuff capsule, initial encounter (principal); S53.402A Unspecified sprain of left elbow, initial encounter; W00.0XXA Fall on same level due to ice and snow, initial encounter; Y99.0 Civilian activity done for income or pay
CPT/HCPCS: 99283; 99284

== ENCOUNTER 2019-02-20 21:44 | Emergency (ER) | payer BC, OTHER ==
--- NOTE | 2019-02-20 21:59 | Emergency Department Record ---
History of Present Illness - General Chief Complaint: Dizziness Stated Complaint: DIZZINES,WEAKNESS, Time Seen by Provider: 02/20/19 21:48 Source: Patient Mode of Arrival: Ambulatory Limitations: No limitations - History of Present Illness Initial Comments: 38 yo male presents to ED for evaluation of weakness for the past 5 days. Patient denies fevers, chills, vomiting, but does report loose stools at home. Patient denies sore throat, cough, or abdominal pain symptoms. Patient denies health problems at his baseline, denies recent ill contacts. MD Complaint: Dizziness Onset/Timin -: Hour(s) Timing: Gradual onset Description: Lightheadedness History of Same: No History of Trauma: No Severity: Moderate Improves With: Nothing Worsens With: Nothing Associated Symptoms: Denies other symptoms - [place] Coma Scale Eye Response: (4) Open spontaneously Motor Response: (6) Obeys commands Verbal Response: (5) Oriented Dennis Total: 15 - Related Data Allergies Allergy/AdvReac Type Severity Reaction Status Date / Time diptheria immunization Allergy ANAPHYLAXIS Uncoded 10/22/18 14:59 Travel Screening - Travel/Exposure Within Last 30 Days Have you traveled within the last 30 days?: No Review of Systems Constitutional: Reports: Weakness. Denies: Chills, Fever, Malaise, Night sweats Eyes: Denies: Eye discharge, Eye pain ENT: Denies: Congestion, Ear pain, Epistaxis Respiratory: Denies: Cough, Dyspnea Cardiovascular: Denies: Dyspnea on exertion, Edema, Palpitations Endocrine: Reports: Fatigue. Denies: Heat or cold intolerance Gastrointestinal: Denies: Abdominal pain, Nausea, Vomiting Genitourinary: Denies: Incontinence, Retention Musculoskeletal: Denies: Arthralgia, Back pain, Gout, Joint swelling Skin: Denies: Bruising, Change in color Neurological: Denies: Abnormal gait, Confusion, Headache, Seizure Psychiatric: Denies: Anxiety Hematological/Lymphatic: Denies: Anemia, Blood Clots Past Medical History - SOCIAL HISTORY Smoking Status: Never smoker Alcohol Use: None Drug Use: None - RESPIRATORY Hx Respiratory Disorders: No - CARDIOVASCULAR Hx Cardio Disorders: No - NEURO Hx Neuro Disorders: No - GI Hx GI Disorders: No - Hx Genitourinary Disorders: No - ENDOCRINE Hx Endocrine Disorders: No - MUSCULOSKELETAL Hx Musculoskeletal Disorders: No - PSYCH Hx Psych Problems: No - HEMATOLOGY/ONCOLOGY Hx Hematology/Oncology Disorders: No Family Medical History Any Significant Family History?: No Family Hx Comment (NOT TO BE USED IN PLACE OF ITEMS BELOW): denies Physical Exam - General General Appearance: Alert, Oriented x3, Cooperative, No acute distress Limitations: No limitations - Head Head exam: Atraumatic, Normocephalic, Normal inspection Head exam detail: negative: Abrasion, Contusion, Pompa's sign, General tenderness, Hematoma, Laceration - Eye Eye exam: Normal appearance. negative: Conjunctival injection, Periorbital swelling, Periorbital tenderness, Scleral icterus - ENT Ear exam: negative: Auricular hematoma, Auricular trauma Nasal Exam: negative: Active bleeding, Discharge, Dried blood, Foreign body Mouth exam: negative: Drooling, Laceration, Muffled voice, Tongue elevation - Neck Neck exam: Normal inspection. negative: Meningismus, Tenderness - Respiratory Respiratory exam: Normal lung sounds bilaterally. negative: Rales, Respiratory distress, Rhonchi, Stridor - Cardiovascular Cardiovascular Exam: Regular rate, Normal rhythm, Normal heart sounds - GI/Abdominal GI/Abdominal exam: Soft. negative: Rebound, Rigid, Tenderness - Rectal Rectal exam: Deferred - exam: Deferred - Extremities Extremities exam: Normal inspection. negative: Pedal edema, Tenderness - Back Back exam: Denies: CVA tenderness (R), CVA tenderness (L) - Neurological Neurological exam: Alert, Normal gait, Oriented X3 - Psychiatric Psychiatric exam: Normal affect, Normal mood - Skin Skin exam: Normal color. negative: Abrasion Type of lesion: negative: abrasion Course Vital Signs 02/20/19 21:49 Temperature 98.8 F Pulse Rate [ 111 H Left] Respiratory 16 Rate Blood Pressure 128/79 [Left Arm] Pulse Ox 97 - Reevaluation(s) Reevaluation #1: 02/20/19 22:21 Laboratory studies were reviewed and are grossly unremarkable for an acute process. Influenza negative. No atypical lymphocytes to suggest mononucleosis. Patient received IVFs with improvement in his symptoms, appears stable for discharge at this time. Medical Decision Making - Lab Data Result diagrams: 02/20/19 21:55 02/20/19 21:55 Disposition Disposition: Discharge Clinical Impression: Generalized weakness Fatigue Qualifiers: Fatigue type: unspecified Qualified Code(s): R53.83 - Other fatigue Disposition: Home, Self-Care Condition: (2) Stable Instructions: Weakness (ED) Additional Instructions: Return to ED if your symptoms worsen or if you have any concerns. Follow-up with your family doctor in 3-5 days as directed. Forms: Patient Portal Access Time of Disposition: 22:24 Quality - Quality Measures Quality Measures: N/A - Blood Pressure Screening Does Patient Have Any of the Following: No Blood Pressure Classification: Pre-Hypertensive BP Reading Systolic Measurement: 128 Diastolic Measurement: 79 Screening for High Blood Pressure: < Pre-Hypertensive BP, F/U Documented > [ G8950] Pre-Hypertensive Follow-up Interventions: Referral to alternative/primary care provider.
[2019-02-20] MEDS ORDERED: 0.9 % SODIUM CHLORIDE 1000ML 1,000 ML IV SCH (22:00)
[2019-02-20 22:03] LABS: HEMATOCRIT 42.9 % (42.0-52.0); HEMOGLOBIN 14.8 gm/dl (14.0-18.0); MEAN CELL VOLUME 85.6 fl (81-97); MEAN CORPUSCULAR HEMOGLOBIN 29.5 pg (27-33); MEAN CORPUSCULAR HGB CONC 34.5 g/dl (32-36); MEAN PLATELET VOLUME 9.1 fl (7.4-10.4); PLATELET COUNT 226 K/uL (130-400); RED BLOOD COUNT 5.01 M/uL (4.40-5.70); RED CELL DISTRIBUTION WIDTH 12.2 % (11.5-14.5); WHITE BLOOD COUNT W/O DIFF 5.1 K/uL (4.2-12.2)
[2019-02-20 22:11] LABS: BLOOD UREA NITROGEN 10 mg/dL (6-20); CREATININE 0.9 mg/dL (0.7-1.2); EST GLOMERULAR FILTRATION RATE > 60 mL/min
[2019-02-20 22:12] LABS: TOTAL PROTEIN 6.7 g/dL (6.6-8.7)
[2019-02-20 22:14] LABS: GLUCOSE,RANDOM 110 mg/dL (74-109)
[2019-02-20 22:17] LABS: ALB/GLOB RATIO 1.3 (1.1-1.8); ALBUMIN 3.8 g/dL (4.0-5.0); ALKALINE PHOSPHATASE 79 U/L (40-129); ALT/SGPT 32 U/L (<41); AST/SGOT 37 U/L (10.0-50.0); INFLUENZA A NEGATIVE (NEGATIVE)
[2019-02-20 22:18] LABS: INFLUENZA B NEGATIVE (NEGATIVE)
[2019-02-20 22:23] LABS: PLATELET ESTIMATE NORMAL (NORMAL)
== END 2019-02-20 22:39 | disposition home or self-care (01) ==
LOC: ER 21:44
DX: R53.1 Weakness (principal); R53.83 Other fatigue; R19.7 Diarrhea, unspecified; R42 Dizziness and giddiness
CPT/HCPCS: 80053; 85027; 87400; 96360; 99284; J7030

== ENCOUNTER 2019-10-24 11:32 | Emergency (ER) | payer SELFPAY ==
--- NOTE | 2019-10-24 12:03 | Emergency Department Record ---
History of Present Illness - General Chief complaint: ENT Stated complaint: SORE THROAT Time Seen by Provider: 10/24/19 11:43 Source: Patient Mode of Arrival: Ambulatory Limitations: No limitations - History of Present Illness Initial comments: The patient is here due to a 1-2 day hx of a cough, ST, hoarse voice and intermittent sputum production. He denies any SOB, fever, chills, MCCURDY, CP or neck pain. The patient has had some chills and body aches also. MD complaint: Other Onset/Timin -: Days(s) Location: Throat Associated Symptoms: Cough, Sore throat - Related Data Previous Rx's Medication Instructions Recorded Albuterol Sulfate [Proair Hfa] 2 puff IH QID PRN #1 inhaler 10/24/19 Prednisone [Prednisone 20Mg] 40 mg PO DAILY #10 tab 10/24/19 Allergies Allergy/AdvReac Type Severity Reaction Status Date / Time diptheria immunization Allergy ANAPHYLAXIS Uncoded 10/24/19 11:37 Travel Screening - Travel/Exposure Within Last 30 Days Have you traveled within the last 30 days?: No Review of Systems Constitutional: Reports: Malaise. Denies: Chills, Fever Eyes: Denies: Eye discharge ENT: Reports: Congestion Respiratory: Reports: Cough. Denies: Dyspnea Cardiovascular: Denies: Chest pain Endocrine: Reports: Fatigue Past Medical History - SOCIAL HISTORY Smoking Status: Never smoker Alcohol Use: None Drug Use: None - RESPIRATORY Hx Respiratory Disorders: No - CARDIOVASCULAR Hx Cardio Disorders: No - NEURO Hx Neuro Disorders: No - GI Hx GI Disorders: No - Hx Genitourinary Disorders: No - ENDOCRINE Hx Endocrine Disorders: No - MUSCULOSKELETAL Hx Musculoskeletal Disorders: No - PSYCH Hx Psych Problems: No - HEMATOLOGY/ONCOLOGY Hx Hematology/Oncology Disorders: No Family Medical History Any Significant Family History?: No Family Hx Comment (NOT TO BE USED IN PLACE OF ITEMS BELOW): denies Physical Exam - General General Appearance: Alert, Oriented x3, Cooperative, No acute distress - Head Head exam: Atraumatic, Normocephalic, Normal inspection - Eye Eye exam: Normal appearance, PERRL. negative: EOMI - ENT ENT exam: negative: TM's normal bilaterally (There is bilateral cerumen blocking the view of the TM's.) Throat exam: Tonsillar erythema (mild.). negative: Normal inspection, Tonsillomegaly, Tonsillar exudate, R peritonsillar mass, L peritonsillar mass - Neck Neck exam: Normal inspection, Full ROM. negative: Lymphadenopathy, Meningismus, Tenderness - Respiratory Respiratory exam: Normal lung sounds bilaterally. negative: Decreased breath sounds, Respiratory distress, Rhonchi, Stridor, Wheezes - Cardiovascular Cardiovascular Exam: Regular rate, Normal rhythm, Normal heart sounds - GI/Abdominal GI/Abdominal exam: Soft, Normal bowel sounds. negative: Tenderness - Extremities Extremities exam: Normal inspection, Full ROM, Normal capillary refill. negative: Tenderness - Neurological Neurological exam: Alert. negative: Motor sensory deficit Course Vital Signs 10/24/19 11:38 Temperature 98.7 F Pulse Rate 93 H Respiratory 18 Rate Blood Pressure 138/83 Pulse Ox 97 - Reevaluation(s) Reevaluation #1: The patient is doing very well at this time. I did discuss the neg Flu swab and neg CXR with him and the need for F/U if not better. 10/24/19 12:35 Medical Decision Making - Data Complexity MDM Data: Labs Ordered and/or Reviewed (Flu: Neg.), X-Ray Ordered and/or Reviewed - Radiology Data Radiology results: Report reviewed (CXR: Neg.) Disposition Disposition: Discharge Clinical Impression: URI, acute Disposition: Home, Self-Care Condition: (2) Stable Instructions: Upper Respiratory Infection (ED) Additional Instructions: Please take an OTC cough and cold medicine and please use the Inhaller and Prednisone as directed. Please see your doctor in 3-4 days if not better and return to the ER for any worsening symptoms. Prescriptions: Prednisone [Prednisone 20Mg] 40 mg PO DAILY #10 tab Albuterol Sulfate [Proair Hfa] 2 puff IH QID PRN #1 inhaler PRN Reason: Cough And Difficulty Breathing Forms: Patient Portal Access Time of Disposition: 12:37 Quality - Quality Measures Quality Measures: N/A - Blood Pressure Screening View Details: Yes Does Patient Have Any of the Following: No Blood Pressure Classification: Pre-Hypertensive BP Reading Systolic Measurement: 138 Diastolic Measurement: 83 Screening for High Blood Pressure: < Pre-Hypertensive BP, F/U Documented > [G8950] Pre-Hypertensive Follow-up Interventions: Referral to alternative/primary care provider.
[2019-10-24 12:30] LABS: INFLUENZA A NEGATIVE (NEGATIVE); INFLUENZA B NEGATIVE (NEGATIVE)
--- NOTE | 2019-10-24 12:33 | RADIOLOGY REPORT ---
EXAMINATION: Two View Chest Radiographs EXAM DATE: 10/24/2019 12:11 PM TECHNIQUE: Frontal and lateral views INDICATION: cough COMPARISON: None ENCOUNTER: Not applicable FINDINGS: The heart, mediastinum, and pulmonary vasculature are normal. No lung consolidation or pleural effu sions are present. No no pneumothorax. IMPRESSION: No acute cardiopulmonary disease is present. Dictated by: Zeferino Cuenca DO on 10/24/2019 12:30 PM. .
== END 2019-10-24 12:51 | disposition home or self-care (01) ==
LOC: ER 11:32
DX: J06.9 Acute upper respiratory infection, unspecified (principal); R05 Cough; J02.9 Acute pharyngitis, unspecified; H61.23 Impacted cerumen, bilateral
CPT/HCPCS: 71046; 87400; 99283